=== PATIENT | male | born 1985 | race Asian ===

== ENCOUNTER 2023-09-21 21:55 | Emergency (ER) | payer BC ==
[~2023-09-21] VITALS: Ht 165.1 cm; Wt 68.0 kg
[2023-09-21 22:04] VITALS: O2SAT 100
[2023-09-21 23:05] LABS: BASOPHILS % 0.6 % (0.0-2.0); EOSINOPHILS % 0.6 % (0.0-5.0); HEMATOCRIT. 37.6 % (42.0-52.0); HEMOGLOBIN. 12.8 g/dL (14.0-18.0); LYMPHOCYTES % 12.3 % (20.0-50.0); MEAN CORPUSCULAR HEMOGLOBIN 29.7 pg (28.0-32.0); MEAN CORPUSCULAR VOLUME 87.2 fL (80.0-94.0); MEAN PLATELET VOLUME 7.5 fl (7.4-10.4); MONOCYTES % 5.6 % (2.0-8.0); NEUTROPHILS % 80.9 % (40.0-76.0); PLATELET 303 x1000/uL (130-400); RED BLOOD CELL COUNT 4.32 mill/uL (4.7-6.1); RED CELL DISTRIBUTION WIDTH 12.7 % (11.6-14.6); WHITE BLOOD COUNT 12.1 x1000/uL (4.5-11.0)
[2023-09-21] MEDS: SODIUM CHLORIDE 0.9% 1,000 ML IV ONE (23:07)
[2023-09-21 23:14] LABS: CHLORIDE 103 mEq/L (98-107); POTASSIUM 3.9 mEq/L (3.5-5.1); SODIUM 141 mEq/L (136-145)
[2023-09-21 23:15] LABS: CALCIUM 9.7 mg/dL (8.7-10.4); CARBON DIOXIDE 31 mEq/L (21-32)
[2023-09-21 23:19] LABS: CREATININE 1.2 mg/dL (0.6-1.3)
[2023-09-21 23:20] LABS: GLUCOSE 107 mg/dL (70-105); UREA NITROGEN BLOOD 19 mg/dL (9-23)
[2023-09-21 23:22] LABS: ETHANOL BLOOD < 10 mg/dL (<10); TROPONIN I HIGH SENSITIVITY < 4 ng/L (3.0-53)
[2023-09-21] MEDS: ACETAMINOPHEN 1000MG/100ML 100 ML IV ONE (23:22)
[2023-09-21] MEDS: METOCLOPRAMIDE HCL 10MG/2ML VIAL IV ONE (23:27)
[2023-09-21] MEDS ORDERED: ACET-2708 MT (23:59)
[2023-09-21] MEDS ORDERED: METO-293 MT (23:59)
[2023-09-22 00:11] VITALS: BP 132/81; PULSE 68; RESP 16; TEMP 98.2
== END 2023-09-22 00:15 | disposition home or self-care (01) ==
LOC: ER 21:55
DX: G43.909 Migraine, unspecified, not intractable, without status migrainosus (principal); I10 Essential (primary) hypertension
CPT/HCPCS: 80048; 80320; 83880; 83690; 85025; 84484; 36415; 71045; 93005; 96365; 96375; 99285; J2765; J7030; Z7610; G0480; J0131